=== PATIENT | male | born 1995 | race Asian ===

== ENCOUNTER 2018-09-22 11:39 | Emergency (ER) | payer OTHER ==
[~2018-09-22] VITALS: Ht 175.3 cm; Wt 74.8 kg
[2018-09-22 12:31] LABS: PLATELET COUNT 230 K/uL (142-355)
[2018-09-22 12:40] LABS: POTASSIUM 3.6 mmol/L (3.6-5.2)
[2018-09-22 13:20] VITALS: BP 125/80; TEMP 98.2
== END 2018-09-22 13:20 | disposition home or self-care (01) ==
LOC: ED 11:39
DX: J39.2 Other diseases of pharynx (principal); J04.0 Acute laryngitis
CPT/HCPCS: 36415; 80053; 85027; 87502; 87651; 99283